=== PATIENT | male | born 1965 | race Caucasian/White ===

== ENCOUNTER → 2016-08-28 12:21 | Day surgery (SDC) | payer OTHER ==
[~2016-08-28 12:21] MED LIST: Lidocain 1% EPI 1:100,000 * 30 ML MDV ONE
[2016-08-28 14:53] VITALS: BP 114/88
--- NOTE | 2016-08-30 05:54 | OP ---
OPERATIVE REPORT: DATE OF OPERATION: 08/28/16 DATE OF : 69 SURGEON: Josiah Marie MD [employer] COORDINATOR: DESIRAE Bartlett ANESTHESIOLOGIST: None. ANESTHESIA: Local only with 1% plain lidocaine with epinephrine. PRE-OP DIAGNOSIS: Left de Quervain's tenosynovitis. POST-OP DIAGNOSIS: Left de Quervain's tenosynovitis. OPERATIVE PROCEDURE: Left wrist de Quervain's release. INDICATIONS: Jovani is a 50-year-old male who has had longstanding symptoms of de Quervain's tenosy novitis. I did give him one injection and he got significantly better, but ultimately recurred. We talked about risks and benefits and he would like to proceed with surgery. ESTIMATED BLOOD LOSS: 10 mL. COMPLICATIONS: None. FINDINGS: Significant tenosynovitis with an accessory compartment in the first dorsal compartment. There was fraying and degeneration in a couple of the tendons. DESCRIPTION OF PROCEDURE: Jovani was seen in the preoperative holding area and the correct side and site were marked. We had a time-out and then I infiltrated the operative area with 1% lidocaine wi th epinephrine. We then came back to the operating room with her arms prepped and draped in the usua l fashion and a formal time-out was performed. A transverse incision was made 1 cm proximal to the radial styloid. Dissection was carried down thr ough the skin and subcutaneous tissue, and care was taken to preserve the dorsal sensory radial nerv es. This was retracted and the first dorsal compartment sheath was identified. The sheath was open ed over the dorsal aspect of the compartment. The release was extended proximally and distally with the tenotomy scissors and the knife. There was extensive tenosynovitis noted. There was also a se parate sub-sheath with another tendon in it. This tendon as well as one in the main compartment janice wed significant degeneration and fraying. I went ahead and performed tenosynovectomy of these tendo ns until they were clean and free of disease tissue. I then went ahead and irrigated the wound and made sure they were back inside and under the released retinaculum. The wound was then closed with 4-0 Monocryl running subcuticular suture. Steri-Strips were placed. Sterile dressings were applied including an Edwin wrap. He was then taken to the recovery room in stable condition. [id number]/[facility] #: [id number]
== END | disposition home or self-care (01) ==
LOC: OREAST 12:21
PROVIDERS: ATTEND Orthopaedic Surgery Hand Surgery
DX: M65.4 Radial styloid tenosynovitis [de Quervain] (principal); Z87.891 Personal history of nicotine dependence
CPT/HCPCS: 88305

== ENCOUNTER 2016-11-07 08:34 | Emergency (ER) | payer OTHER ==
--- NOTE | 2016-11-07 09:58 | UC ---
Throat Pain/Nasal Nas HPI - HPI Summary HPI Summary: throat pain for 3 days nothing makes it better or worse---feels sob, did have some sweating yesterday--- - History of Current Complaint Chief Complaint: UCRespiratory Stated Complaint: THROAT COMPLAINT Time Seen by Provider: 11/07/16 09:52 Hx Obtained From: Patient Onset/Duration: Sudden Onset, Lasting Days - 3, Still Present Severity: Severe Pain Intensity: 10 Pain Scale Used: 0-10 Numeric Cough: None Associated Signs & Symptoms: Positive: Negative - Allergies/Home Medications Allergies/Adverse Reactions: Allergies Allergy/AdvReac Type Severity Reaction Status Date / Time Latex Allergy IRRITATES Verified 11/07/16 08:53 SKIN PMH/Surg Hx/FS Hx/Imm Hx Previously Healthy: No Endocrine History Of: Denies: Diabetes, Thyroid Disease Cardiovascular History Of: Denies: Cardiac Disorders, Hypertension, Pacemaker/ICD Respiratory History Of: Reports: Asthma - YOUNG CHILD Denies: COPD GI/ History Of: Denies: Ulcer Neurological History Of: Reports: Migraine Psychological History Of: Reports: Anxiety - ON DAILY MEDS - Surgical History Surgical History: Yes Surgery Procedure, Year, and Place: AGE 7 OR 8, LEFT INGUINAL HERNIA SURGERY, [facility]. TONSILLECTOMY A CHILD, [facility]. 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 Lives: With Family Alcohol Use: None Substance Use Type: Marijuana Substance Use Comment - Amount & Last Used: DAILY Smoking Status (MU): Former Smoker Type: Cigarettes Amount Used/How Often: 1PPD 20 YRS Length of Time of Smoking/Using Tobacco: 20 YRS Have You Smoked in the Last Year: No When Did the Patient Quit Smoking/Using Tobacco: 2000 Review of Systems Constitutional: Negative Skin: Negative Eyes: Negative ENT: Sore Throat Respiratory: Shortness Of Breath Cardiovascular: Negative Gastrointestinal: Negative Genitourinary: Negative Motor: Negative Neurovascular: Negative Musculoskeletal: Negative Neurological: Negative Psychological: Negative All Other Systems Reviewed And Are Negative: No Physical Exam Triage Information Reviewed: Yes Appearance: Well-Appearing, No Pain Distress, Well-Nourished Vital Signs: Initial Vital Signs Temp 98.7 F 11/07/16 08:49 Pulse 59 11/07/16 08:49 Resp 18 11/07/16 08:49 BP 121/81 11/07/16 08:49 Pulse Ox 98 11/07/16 08:49 Vital Signs Reviewed: Yes Eye Exam: Normal Eyes: Positive: Conjunctiva Clear ENT Exam: Normal ENT: Positive: Normal ENT inspection, Hearing grossly normal, Pharynx normal, TMs normal. Negative: Nasal congestion, Nasal drainage, Tonsillar swelling, Tonsillar exudate, Trismus, Muffled/hoarse voice Dental Exam: Normal Neck exam: Normal Neck: Positive: Supple, Nontender, No Lymphadenopathy Respiratory Exam: Normal Respiratory: Positive: Chest non-tender, Lungs clear, Normal breath sounds, No respiratory distress, No accessory muscle use Cardiovascular Exam: Normal Cardiovascular: Positive: RRR, No Murmur, Pulses Normal, Brisk Capillary Refill Abdominal Exam: Normal Abdomen Description: Positive: Nontender, No Organomegaly, Soft Bowel Sounds: Positive: Present Musculoskeletal Exam: Normal Musculoskeletal: Positive: No Edema Neurological Exam: Normal Neurological: Positive: Alert, Muscle Tone Normal Psychological Exam: Normal Skin Exam: Normal Diagnostics - Laboratory Diagnostic Studies Completed/Ordered: rst (-) rapid Flu (-) - Radiology No standard instances Xray Interpretation: No Acute Changes Radiology Interpretation Completed By: Radiologist - EKG Cardiac Rate: Bradycardia Cardiac Rhythm: Sinus: Normal Ectopy: None ST Segment: Normal Throat Pain/Nasal Course/Dx - Course Assessment/Plan: review case with Dr. Sanchez send to [facility] [place] for further evaluation - Differential Dx/Diagnosis Differential Diagnosis/HQI/PQRI: Pharyngitis, Sinusitis, URI, Other - angina Provider Diagnoses: throat pain - Physician Notification/Consults Discussed Patient Care With: Cristy Anders MD Time Discussed With Above Provider: 11:35 Instructed by Provider To: Transfer - [facility] [place] ed Discharge - Discharge Plan Condition: Good Disposition: AGAINST MEDICAL ADVICE Referrals: Raquel Murray MD [Primary Care Provider] -
--- NOTE | 2016-11-07 11:22 | RAD ---
INDICATION: Sore throat COMPARISON: None TECHNIQUE: 2 views of the neck were obtained with soft tissue technique FINDINGS: There are no acute osseous findings. There is moderate osteoarthritic change at C4-C6 with narrowing, endplate sclerosis, and uncinate process hypertrophy. There is mild reversal of normal cervical lordosis. The soft tissue elements of the neck are normal. The epiglottis is normal. The prevertebral soft tissues are normal. The airway is widely patent. IMPRESSION: NORMAL SOFT TISSUE NECK. UNDERLYING OSTEOARTHRITIS OF THE CERVICAL SPINE
[2016-11-07 11:31] VITALS: BP 122/77
== END 2016-11-07 11:43 | disposition left against medical advice (07) ==
LOC: UCEAST 08:34
DX: R07.0 Pain in throat (principal); G43.909 Migraine, unspecified, not intractable, without status migrainosus; F41.9 Anxiety disorder, unspecified; Z87.891 Personal history of nicotine dependence; Z91.040 Latex allergy status
CPT/HCPCS: 70360; 87502; 87651; 93005; 99202; G0463

== ENCOUNTER 2017-06-01 17:20 | Emergency (ER) | payer OTHER ==
--- NOTE | 2017-06-01 17:24 | UC ---
Throat Pain/Nasal Nas HPI - HPI Summary HPI Summary: 51 year old male presents with complains of sinus congestion and pressure. - History of Current Complaint Stated Complaint: SINUS CONGESTION, AND EARS CLOGGED Time Seen by Provider: 06/01/17 17:23 Hx Obtained From: Patient Onset/Duration: Sudden Onset Severity: Moderate Pain Scale Used: 0-10 Numeric - 3 Cough: Nonproductive Associated Signs & Symptoms: Positive: Negative - Allergies/Home Medications Allergies/Adverse Reactions: Allergies Allergy/AdvReac Type Severity Reaction Status Date / Time Latex Allergy IRRITATES Verified 06/01/17 17:29 SKIN Home Medications: Home Medications Antihistamine* PRN 06/01/17 [History] PMH/Surg Hx/FS Hx/Imm Hx Previously Healthy: Yes - Surgical History Surgical History: Yes Surgery Procedure, Year, and Place: AGE 7 OR 8, LEFT INGUINAL HERNIA SURGERY, [facility]. TONSILLECTOMY A CHILD, [facility]. 2011 CARPAL TUNNEL LEFT HAND [facility] - Family History Known Family History: Positive: Cardiac Disease, Hypertension, Diabetes Family History: early deaths in first degreee relatives from vacular events - Social History Alcohol Use: None Substance Use Type: Marijuana Substance Use Comment - Amount & Last Used: DAILY Smoking Status (MU): Former Smoker Type: Cigarettes Amount Used/How Often: 1PPD 20 YRS Length of Time of Smoking/Using Tobacco: 20 YRS Have You Smoked in the Last Year: No When Did the Patient Quit Smoking/Using Tobacco: 2000 Review of Systems Constitutional: Negative Skin: Negative Eyes: Negative ENT: Sore Throat, Nasal Discharge, Sinus Congestion, Sinus Pain/Tenderness Respiratory: Cough Cardiovascular: Negative Gastrointestinal: Negative Genitourinary: Negative Motor: Negative Neurovascular: Negative Musculoskeletal: Negative Neurological: Negative Psychological: Negative All Other Systems Reviewed And Are Negative: Yes Physical Exam Triage Information Reviewed: Yes Vital Signs Reviewed: Yes Eye Exam: Normal ENT Exam: Normal Dental Exam: Normal Neck exam: Normal Neck: Positive: 1 Respiratory Exam: Normal Cardiovascular Exam: Normal Abdominal Exam: Normal Musculoskeletal Exam: Normal Neurological Exam: Normal Psychological Exam: Normal Skin Exam: Normal Throat Pain/Nasal Course/Dx - Differential Dx/Diagnosis Provider Diagnoses: sinusitis Discharge - Discharge Plan Condition: Stable Disposition: HOME Prescriptions: Amoxicillin/Clavulanate TAB* [Augmentin TAB 875*] 875 mg PO BID #20 tab Methylprednisolone [Medrol Dosepak 4 MG*] 4 mg PO .SEE JAIME INSTRUCTION #21 tab guaiFENesin/CODIEN 100MG-10MG* [Robitussin AC 100Mg-10Mg*] 5 ml PO Q8H PRN #120 ml MDD 15 ml PRN Reason: Cough Patient Education Materials: Sinusitis (ED) Referrals: Raquel Murray MD [Primary Care Provider] -
[2017-06-01 17:29] VITALS: BP 116/73
== END 2017-06-01 17:31 | disposition home or self-care (01) ==
LOC: UCEAST 17:20
DX: J32.9 Chronic sinusitis, unspecified (principal); Z91.040 Latex allergy status; Z87.891 Personal history of nicotine dependence
CPT/HCPCS: 99212; G0463

== ENCOUNTER 2018-07-09 15:00 | Emergency (ER) | payer OTHER ==
[2018-07-09 15:13] VITALS: BP 118/77
--- NOTE | 2018-07-09 16:45 | UC ---
Knee Pain HPI - HPI Summary HPI Summary: ABOUT 3 WEEKS OF PROGRESSIVELY WORSENING LEFT KNEE PAIN. HAS PAIN WITH WEIGHTBEARING BUT DOES NOT FEEL UNSTABLE. PATIENT HAS NOTICED A SMALL AMOUNT OF SWELLING SO DECIDED TO COME IN FOR EVALUATION. NO DISCRETE INJURY BUT STATES HE IS ON HIS FEET ALL DAY AT WORK AND DOES GO TO THE GYM. WONDERS IF HE INJURED IT DURING A WORKOUT. - History of Current Complaint Chief Complaint: UCLowerExtremity Stated Complaint: KNEE INJURY Time Seen by Provider: 07/09/18 16:03 Hx Obtained From: Patient Onset/Duration: Gradual Onset, Lasting Weeks, Still Present Severity Initially: Mild Severity Currently: Moderate Pain Intensity: 6 Pain Scale Used: 0-10 Numeric Character: Sharp Aggravating Factor(s): Movement, Weight Bearing Alleviating Factor(s): Rest Associated Signs And Symptoms: Positive: Swelling Able to Bear Weight: Yes - Allergies/Home Medications Allergies/Adverse Reactions: Allergies Allergy/AdvReac Type Severity Reaction Status Date / Time MS Latex [Latex] Allergy IRRITATES Verified 06/01/17 17:29 SKIN PMH/Surg Hx/FS Hx/Imm Hx Previously Healthy: Yes - Surgical History Surgical History: Yes Surgery Procedure, Year, and Place: AGE 7 OR 8, LEFT INGUINAL HERNIA SURGERY, [facility]. TONSILLECTOMY A CHILD, [facility]. 2012 CARPAL TUNNEL LEFT HAND [facility]. tendon release left thumb and carpal tunnel 2013 - Family History Known Family History: Positive: Cardiac Disease, Hypertension, Diabetes Family History: early deaths in first degreee relatives from vacular events - Social History Alcohol Use: None Substance Use Type: Marijuana Substance Use Comment - Amount & Last Used: DAILY Smoking Status (MU): Former Smoker Type: Cigarettes Amount Used/How Often: 1PPD 20 YRS Length of Time of Smoking/Using Tobacco: 20 YRS Have You Smoked in the Last Year: No When Did the Patient Quit Smoking/Using Tobacco: 2000 Review of Systems All Other Systems Reviewed And Are Negative: Yes Constitutional: Positive: Negative Skin: Positive: Negative Respiratory: Positive: Negative Cardiovascular: Positive: Negative Gastrointestinal: Positive: Negative Musculoskeletal: Positive: Arthralgia, Decreased ROM, Edema Physical Exam Triage Information Reviewed: Yes Appearance: Well-Appearing, No Pain Distress, Well-Nourished Vital Signs: Initial Vital Signs Temp 99.6 F 07/09/18 15:05 Pulse 63 07/09/18 15:05 Resp 16 07/09/18 15:05 BP 118/77 07/09/18 15:05 Pulse Ox 97 07/09/18 15:05 Vital Signs Reviewed: Yes Eyes: Positive: Conjunctiva Clear ENT: Positive: Hearing grossly normal Neck: Positive: Supple Respiratory: Positive: No respiratory distress, No accessory muscle use Cardiovascular: Positive: Pulses Normal Abdomen Description: Positive: Soft Musculoskeletal: Positive: ROM Limited @ - LEFT KNEE, Edema @ - MILD EDEMA LEFT KNEE, Other: - LEFT KNEE: NO JOINT LINE TENDERNESS OR TENDERNESS OVER ANY BONY PROMINENCES. MCL AND LCL INTACT TO STRESS TESTING. NEG LACHMANS. NEG DRAWERS SIGNS. NEG MCMURRAYS. NEG PATELLAR APPREHENSION TEST. NO TENDERNESS OVER PATELLAR LIGAMENT OR QUADRICEPS TENDON. DECREASED ROM (FLEXION AND EXTENSION). Neurological: Positive: Alert Psychological: Positive: Age Appropriate Behavior Skin: Negative: Rashes Diagnostics - Radiology LEFT KNEE XRAY Radiology Interpretation Completed By: Radiologist Summary of Radiographic Findings: SMALL JOINT EFFUSION Knee Pain Course/Dx - Differential Dx/Diagnosis Provider Diagnosis: Left knee sprain Discharge - Sign-Out/Discharge Documenting (check all that apply): Patient Departure All imaging exams completed and their final reports reviewed: Yes - Discharge Plan Condition: Stable Disposition: HOME Prescriptions: Naproxen [Naproxen 500 mg tab] 500 mg PO BID PRN #30 tablet PRN Reason: Pain Patient Education Materials: Knee Sprain (ED) Referrals: Raquel Murray MD [Primary Care Provider] - If Needed Maximus Flores MD [Medical Doctor] - 1 Week Additional Instructions: LEFT KNEE XRAYS SHOW A SMALL JOINT EFFUSION BUT NO FRACTURE OR DISLOCATION. YOU MAY HAVE A SPRAIN OR POSSIBLY AN INTERNAL KNEE INJURY. FOLLOW-UP WITH YOUR PCP OR ORTHO. YOU MAY BENEFIT FROM [facility]. NAPROXEN NEEDED FOR DISCOMFORT. REST, ICE, COMPRESS, ELEVATE. KNEE IMMOBILIZER NEEDED FOR SYMPTOM RELIEF. BE SURE TO GO THROUGH SLOW RANGE OF MOTION AND STRETCHING EXERCISES DAILY YOU ARE ABLE TO PREVENT STIFFENING UP AND MAKING THE DISCOMFORT WORSE. - Billing Disposition and Condition Condition: STABLE Disposition: Home
== END 2018-07-09 17:16 | disposition home or self-care (01) ==
LOC: UCEAST 15:00
DX: S83.92XA Sprain of unspecified site of left knee, initial encounter (principal); X58.XXXA Exposure to other specified factors, initial encounter; Y92.9 Unspecified place or not applicable; Z91.040 Latex allergy status; Z87.891 Personal history of nicotine dependence
CPT/HCPCS: 99213; G0463